=== PATIENT | male | born 1975 | race Caucasian/White ===

== ENCOUNTER 2018-12-20 06:41 | Emergency (ER) | payer OTHER ==
[~2018-12-20] VITALS: Ht 172.7 cm; Wt 77.1 kg
--- NOTE | 2018-12-20 07:08 | NUR ---
Patient discharged to home in stable conditon. Written and verbal after care instructions given. Patient verbalizes understanding of instructions.
[2018-12-20] MEDS ORDERED: NAPROXEN 500 MG TABLET ONE (07:09)
[2018-12-20 07:10] VITALS: BP 132/81
[2018-12-20] MEDS ORDERED: NAPROXEN 500 MG TABLET PO ONE (07:15)
== END 2018-12-20 07:10 | disposition home or self-care (01) ==
LOC: ER 06:44
DX: Q38.4 Congenital malformations of salivary glands and ducts (principal); Z88.8 Allergy status to other drugs, medicaments and biological substances
CPT/HCPCS: A4663